=== PATIENT | female | born 1950 ===

== ENCOUNTER → 2018-03-24 | Outpatient (CLI) | payer OTHER | END | disposition home or self-care (01) | LOC: NUCLEAR 10:00 | DX: I20.1 Angina pectoris with documented spasm (principal) ==

== ENCOUNTER 2019-07-23 12:24 | Inpatient (IN) | payer OTHER ==
[~2019-07-23] VITALS: Ht 162.6 cm; Wt 79.8 kg
[2019-07-23] MEDS ORDERED: JENTADUETO 2.51 EACH PO (12:37)
[2019-07-23] MEDS ORDERED: HORIZANT300 MG PO (12:37)
[2019-07-23] MEDS ORDERED: LISINOPRIL2.5 MG PO (12:37)
[2019-07-23] MEDS ORDERED: SYNTHROID75 MCG (13:29)
== END 2019-07-26 17:48 | disposition home or self-care (01) | DRG 291 ==
LOC: ER 12:24 → MEDI 20:33 → SURG 20:33 → SEC-K 20:33 → SURG 22:15 → MEDI 07-24 16:46
PROVIDERS: ADMIT Student in an Organized Health Care Education/Training Program
PROC: B246ZZZ Ultrasonography of Right and Left Heart (ICD-10-PCS; principal; 2019-07-23)
PROC: BW28ZZZ Computerized Tomography (CT Scan) of Head (ICD-10-PCS; 2019-07-23)
PROC: 4A12X4Z Monitoring of Cardiac Electrical Activity, External Approach (ICD-10-PCS; 2019-07-23)
DX: I11.0 Hypertensive heart disease with heart failure (principal); I50.21 Acute systolic (congestive) heart failure; I08.1 Rheumatic disorders of both mitral and tricuspid valves; E11.9 Type 2 diabetes mellitus without complications; E03.8 Other specified hypothyroidism; Z79.4 Long term (current) use of insulin